=== PATIENT | male | born 1990 | race Caucasian/White ===

== ENCOUNTER 2019-01-06 11:28 | Emergency (ER) | payer BC, OTHER ==
[~2019-01-06] VITALS: Ht 177.8 cm; Wt 126.6 kg
[~2019-01-06 11:28] MED LIST: ASPI-650 PO; DIGO125T PO; DILT120T3 PO; DILT30TA33 PO; No meds per pt.; VERA120T8 PO
[2019-01-06 12:16] LABS: BASOPHILS # (AUTO) 0.02 x10^3/uL (0-0.1); BASOPHILS % (AUTO) 0 % (0-1); EOSINOPHILS # (AUTO) 0.33 x10^3/uL (0-0.4); EOSINOPHILS % (AUTO) 6 % (1-7); LYMPHOCYTES # (AUTO) 1.86 x10^3/uL (1-3.4); LYMPHOCYTES % (AUTO) 33 % (22-44); MD NO; MEAN CORPUSCULAR HEMOGLOBIN 29.6 pg (27.5-34.5); MEAN CORPUSCULAR HGB CONC 33.8 g/dL (33.2-36.2); MEAN CORPUSCULAR VOLUME 87.4 fL (81-97); MEAN PLATELET VOLUME 8.6 fL (7.4-10.4); MONOCYTES % (AUTO) 9 % (2-9); NEUTROPHILS # (AUTO) 2.96 x10^3/uL (1.8-6.8); NEUTROPHILS % (AUTO) 52 % (42-75); PLATELET COUNT 229 x10^3/uL (130-400); RED BLOOD COUNT 5.32 x10^6/uL (4.38-5.82); RED CELL DISTRIBUTION WIDTH 12.6 % (9.4-14.8)
[2019-01-06 12:27] LABS: ALBUMIN 4.4 g/dL (3.4-5.0); ANION GAP 5 mmol/L (5-15); CALCIUM 9.2 mg/dL (8.5-10.1); CHLORIDE 107 mmol/L (98-107)
[2019-01-06 12:34] LABS: ALANINE AMINOTRANSFERASE 24 U/L (12-78); ALKALINE PHOSPHATASE 65 U/L (45-117); BILIRUBIN,TOTAL 0.6 mg/dL (0.2-1.0); CREATININE 1.02 mg/dL (0.7-1.3); TOTAL PROTEIN 7.7 g/dL (6.4-8.2); TROPONIN I < 0.015 ng/mL (0.000-0.045)
--- NOTE | 2019-01-06 13:00 | NUR ---
PT REPORTS INTERMITTENT L STERNAL CP THAT RADIATES INTO THROAT AND CAUSES SOB. DENIES PROGRESSION IN INTENTISTY. PAIN IS NOT REPORODUCIBLE WITH PALP. NSR ON MONITOR. HS SVT WITH ABLATION BY ROBERT 4 YRS AGO. WDP. DENIES N/V
[2019-01-06] MEDS ORDERED: MAALOX/HYOSCYAMINE/LIDOCAINE 45 ML BTL ONE (13:46)
[2019-01-06 14:34] VITALS: BP 120/60
--- NOTE | 2019-01-06 14:34 | NUR ---
reports no pain at d/c
== END 2019-01-06 14:36 | disposition home or self-care (01) ==
LOC: ED 14:05
DX: R07.2 Precordial pain (principal); R06.02 Shortness of breath; J45.909 Unspecified asthma, uncomplicated
CPT/HCPCS: 36415; 71046; 80053; 84484; 85025; 93005; 99284

== ENCOUNTER 2020-08-13 22:51 | Emergency (ER) | payer BC ==
[~2020-08-13] VITALS: Ht 177.8 cm; Wt 143.2 kg
[~2020-08-13 22:51] MED LIST changes: -DIGO125T PO; +DIGO125T85 PO
[2020-08-13] MEDS ORDERED: IBUPROFEN 800 MG TABLET ONE (23:23)
--- NOTE | 2020-08-13 23:28 | NUR ---
Patient presents to ER c/o non-productive cough and fatigue x2 days and fever since today. Patient self admin NyQuil around 2200 which has not helped. Patient has a cough. He is in NAD. REspirations even and unlabored.
[2020-08-13] MEDS ORDERED: IBUPROFEN 800 MG TABLET PO ONE (23:30)
[2020-08-13 23:48] VITALS: BP 145/71
--- NOTE | 2020-08-14 00:08 | NUR ---
Discharge instructions given. All questions and concerns addressed. Patient ambulatory with a steady gait. Belongings with patient.
== END 2020-08-14 00:10 | disposition home or self-care (01) ==
LOC: ED 08-14 00:01
DX: U07.1 COVID-19 (principal); R00.0 Tachycardia, unspecified; I51.7 Cardiomegaly; I25.2 Old myocardial infarction; R94.31 Abnormal electrocardiogram [ECG] [EKG]; J45.909 Unspecified asthma, uncomplicated; F17.210 Nicotine dependence, cigarettes, uncomplicated
CPT/HCPCS: 36415; 71045; 87635; 93005; 99285; 99406